=== PATIENT | male | born 1955 | race Caucasian/White ===

== ENCOUNTER 2024-04-15 20:10 | Emergency (ER) | payer OTHER ==
[~2024-04-15] VITALS: Ht 188 cm; Wt 90.7 kg
[2024-04-15] MEDS ORDERED: LEVSOD137 PO (22:49)
[2024-04-15] MEDS ORDERED: DEPO-TESTO200 MG/1 M IM (22:51)
[2024-04-15] MEDS ORDERED: SYMBICORT 160-4.6 GM (22:51)
[2024-04-15] MEDS ORDERED: LISI20 PO (22:52)
[2024-04-15] MEDS ORDERED: ATOR20 PO (22:52)
[2024-04-15] MEDS ORDERED: ASPI81CH PO (22:53)
[2024-04-15 23:08] LABS: Source, Urine Clean Catch
[2024-04-15 23:12] LABS: BASOPHILS ABSOLUTE AUTO 0.07 K/mm3 (0.00-0.23); BASOPHILS PERCENT AUTO 1 % (0-2); EOSINOPHILS ABSOLUTE AUTO 0.13 K/mm3 (0.00-0.68); EOSINOPHILS PERCENT AUTO 1 % (0-6); Hematocrit 40.3 % (37.0-53.0); Hemoglobin 14.1 g/dL (13.5-17.5); IMMATURE GRAN ABSOLUTE AUTO 0.06 K/mm3 (0.00-0.10); IMMATURE GRAN PERCENT AUTO 0 % (0-1); LYMPHOCYTES ABSOLUTE AUTO 1.96 K/mm3 (0.84-5.20); LYMPHOCYTES PERCENT AUTO 13 % (21-46); MONOCYTES ABSOLUTE AUTO 1.24 K/mm3 (0.16-1.47); MONOCYTES PERCENT AUTO 8 % (4-13); Mean Corpuscular HGB 31.3 pg (26.0-34.0); Mean Corpuscular Volume 90 fL (80-100); Mean Platelet Volume 9.8 fL (9.1-12.4); NEUTROPHILS ABSOLUTE AUTO 11.92 K/mm3 (1.96-9.15); NEUTROPHILS PERCENT AUTO 78 % (41-73); Platelet Count 356 K/mm3 (150-400); RDW Coefficient Variation 12.9 % (11.7-14.2); RDW Standard Deviation 42.5 fL (35.1-46.3); White Blood Cell Count 15.38 K/mm3 (4.00-11.30)
[2024-04-15 23:21] LABS: Bilirubin, Urine Neg (Neg); Blood, Urine 3+ (Neg); Glucose Qualitative, Urine Neg (Neg); Ketones, Urine Neg (Neg); Leukocyte Esterase, Urine Neg (Neg); Nitrite, Urine Neg (Neg); Protein, Urine Neg (Neg); Urobilinogen, Urine 1+ (Normal)
[2024-04-15 23:24] LABS: Albumin, Blood 2.8 g/dL (3.4-5.0); Albumin/Globulin Ratio 0.7 (0.8-1.8); Bilirubin, Total 0.4 mg/dL (0.1-1.0); Bun/Creatinine Ratio 19.2 (12.0-20.0); Calcium, Blood 8.3 mg/dL (8.5-10.1); Creatinine, Blood 0.73 mg/dL (0.60-1.20); Globulin, Blood 4.1 g/dL (2.2-4.0); Potassium, Blood 3.8 mmol/L (3.5-5.5); Total Protein, Blood 6.9 g/dL (6.4-8.2)
[2024-04-15 23:37] LABS: Appearance, Urine Clear (Clear); Color, Urine Yellow (P-Yellow)
[2024-04-15 23:38] LABS: Bacteria Few /hpf; Squamous Epithelial Cells Not Seen /hpf (Few); White Blood Cells, Urine 0-2 /hpf (0-5)
[2024-04-16 00:21] LABS: Influenza A, PCR NEGATIVE (NEGATIVE); Influenza B, PCR NEGATIVE (NEGATIVE); Resp Syncytial Virus, PCR NEGATIVE (NEGATIVE); SARS-Cov-2 (COVID-19) PCR, MMC NEGATIVE (NEGATIVE)
[2024-04-16] MEDS ORDERED: NS 1,000 ML IV SCH (00:25)
[2024-04-16] MEDS ORDERED: CefTRIAXone Sodium 1,000 MG in NS 50 ML IV ONE (02:10)
[2024-04-16] MEDS ORDERED: Doxycycline Hyclate 100 MG TAB PO ONE (02:15)
[2024-04-16] MEDS ORDERED: Amoxicillin/Clavulanate K 875 MG Tab PO ONE (02:15)
[2024-04-16] MEDS ORDERED: AMOCLA875 PO (02:17)
[2024-04-16] MEDS ORDERED: Doxycycline Mo100 M1 PO (02:17)
== END 2024-04-16 03:02 | disposition home or self-care (01) ==
LOC: ER 20:10
PROVIDERS: Emergency Medicine
DX: J18.9 Pneumonia, unspecified organism (principal); K52.9 Noninfective gastroenteritis and colitis, unspecified; E86.0 Dehydration; R33.9 Retention of urine, unspecified
CPT/HCPCS: 0241U; 51798; 71260; 74177; 80053; 81001; 83605; 85025; 99284-25; A9270; J7030